=== PATIENT | female | born 1970 | race Caucasian/White ===

== ENCOUNTER 2020-10-20 19:02 | Emergency (ER) | payer BC ==
[2020-10-20 20:09] LABS: Hematocrit 41.4 % (36.0-45.0); Lymphocytes % 12.6 % (15.3-44.8); RBC Red Blood Cell Count 4.72 M/uL (3.86-4.86)
[2020-10-20] MEDS ORDERED: MORPHINE 4 MG/ML SYR ONE (20:13)
[2020-10-20] MEDS ORDERED: ONDANSETRON 4 MG/2 ML VIAL ONE ×2 (20:13→21:06)
[2020-10-20 20:21] LABS: ALT/SGPT 23 U/L (12-78); AST/SGOT 15 U/L (15-37); Albumin 3.1 g/dL (3.4-5.0); Alkaline Phosphatase 71 U/L (45-117); BUN Blood Urea Nitrogen 14 mg/dL (7-18); Bicarbonate 26 mmol/L (21-32); Bilirubin Direct < 0.1 mg/dL (0-0.2); Bilirubin Total 0.3 mg/dL (0.2-1.0); Glucose Level 94 mg/dL (74-106); Lipase 40 U/L (73-393); Potassium 3.9 mmol/L (3.5-5.1); Protein, Total 7.2 g/dL (6.4-8.2); Sodium Level 138 mmol/L (136-145)
[2020-10-20] MEDS ORDERED: FENTANYL CITR 100 MCG/2 ML ONE (21:06)
[2020-10-20 21:18] LABS: Urine Blood NEGATIVE (NEG); Urine Glucose NEGATIVE (NEG); Urine Protein NEGATIVE (NEG); Urine Specific Gravity 1.025 (1.005-1.030)
[2020-10-20] MEDS ORDERED: METOCLOPRAMIDE 10 MG/2mL INJ ONE (23:45)
[2020-10-20] MEDS ORDERED: LORazepam 2 MG/ML VIAL ONE (23:46)
[2020-10-20] MEDS ORDERED: DIPHENHYDRAMINE 50 MG/ML VIAL ONE (23:49)
--- NOTE | 2020-10-21 00:08 | EDPHYS ---
Physician Documentation [facility] Name: Monse Wright Age: 50 yrs Sex: Female : 1970 Arrival Date: 10/20/2020 Time: 19:11 Bed 16 Private MD: ED Physician Arthur Smith HPI: 10/20 20:26 This 50 yrs old Female presents to ER via EMS with complaints of Abdominal Pain. jmm 20:26 The patient presents with abdominal pain. Onset: The symptoms/episode began/occurred jmm gradually, 3 week(s) ago. The symptoms do not radiate. Associated signs and symptoms: Pertinent positives: vomiting, Pertinent negatives: diarrhea. The symptoms are described as achy, sharp. Modifying factors: The symptoms are alleviated by nothing, the symptoms are aggravated by nothing. This is a 50 year old female with a history of htn that presents to the ED with complaints of 3 weeks of ongoing abdominal pain with pain after eating along with vomiting. Denies diarrhea. Patient states she has been diagnosed with diverticulitis in the past. Denies previous abdominal surgery. . Historical: - Allergies: 19:15 No Known Allergies; bp - Home Meds: 19:15 carvedilol oral oral [Active]; Lisinopril Oral [Active]; Hydrochlorothiazide Oral bp [Active]; - PMHx: 19:15 Hypertension; bp - PSHx: 19:15 Appendectomy; bp - Immunization history:: Adult Immunizations up to date. - Social history:: Smoking status: unknown. ROS: 20:26 Constitutional: Negative for fever, chills, and weight loss, Cardiovascular: Negative jm for chest pain, palpitations, and edema, Respiratory: Negative for shortness of breath, cough, wheezing, and pleuritic chest pain. 20:26 Abdomen/GI: Positive for abdominal pain, nausea and vomiting. 20:26 All other systems are negative. Exam: 20:26 Constitutional: This is a well developed, well nourished patient who is awake, alert, jmm and in no acute distress. Head/Face: atraumatic. Eyes: EOMI, no conjunctival erythema appreciated ENT: Moist Mucus Membranes Neck: Trachea midline, Supple Chest/axilla: Normal chest wall appearance and motion. Cardiovascular: Regular rate and rhythm. No edema appreciated Respiratory: Normal respirations, no respiratory distress appreciated 20:26 Back: Normal ROM Skin: General appearance color normal MS/ Extremity: Moves all extremities, no obvious deformities appreciated, no edema noted to the lower extremities Neuro: Awake and alert, normal gait Psych: Behavior is normal, Mood is normal, Patient is cooperative and pleasant 20:26 Abdomen/GI: Inspection: abdomen appears normal, Bowel sounds: normal, Palpation: soft, moderate abdominal tenderness, in all quadrants. Vital Signs: 19:12 BP 150 / 70; Pulse 75; Resp 17; Temp 98; Pulse Ox 98% ; bp MDM: 19:39 Patient medically screened. [facility] 10/21 00:06 Data reviewed: vital signs, nurses notes. Counseling: I had a detailed discussion with [facility] the patient and/or guardian regarding: the historical points, exam findings, and any diagnostic results supporting the discharge/admit diagnosis, lab results, radiology results, the need for outpatient follow up, to return to the emergency department if symptoms worsen or persist or if there are any questions or concerns that arise at home. ED course: Patient is alert and non toxic in appearance in the ED. Patient states she takes kratom daily. Symptoms have been ongoing for approx [address] imaging would include gastroparesis, PUD. Advised to follow up with GI and otherwise given strict return precautions. patient understood and agrees with the plan of care. . 10/20 19:40 Order name: Basic Metabolic Panel; Complete Time: 20:23 [facility] 10/20 19:40 Order name: CBC with Diff; Complete Time: 20:23 [facility] 10/20 19:40 Order name: Hepatic Function; Complete Time: 20:23 [facility] 10/20 19:40 Order name: Lipase; Complete Time: 20:23 [facility] 10/20 21:08 Order name: Urine --Ancillary (enter results); Complete Time: 21:20 10/20 21:08 Order name: Urine Dipstick--Ancillary (enter results); Complete Time: 21:20 10/20 21:38 Order name: CT Abd/Pelvis - IV Contrast Only [facility] 10/20 19:40 Order name: IV Saline Lock; Complete Time: 20:00 [facility] 10/20 19:40 Order name: Labs collected and sent; Complete Time: 20:00 [facility] 10/20 19:40 Order name: Urine Dipstick-Ancillary (obtain specimen); Complete Time: 20:18 [facility] 10/20 19:40 Order name: Urine Test (obtain specimen); Complete Time: 20:18 [facility] Administered Medications: 10/20 20:01 Drug: morphine 4 mg Route: IVP; Site: right antecubital; ll2 21:00 Follow up: Response: No adverse reaction; RASS: Alert and Calm (0) ll2 20:02 Drug: Zofran (Ondansetron) 4 mg Route: IVP; Site: right antecubital; ll2 21:20 Follow up: Response: No adverse reaction ll2 20:59 Drug: fentaNYL (PF) 75 mcg Route: IVP; Site: left antecubital; ll2 21:50 Follow up: Response: No adverse reaction ll2 22:46 Drug: Zofran (Ondansetron) 4 mg Route: IVP; Site: left antecubital; ll2 23:45 Follow up: Response: No adverse reaction ll2 23:43 Drug: diphenhydrAMINE 25 mg Route: IVP; Site: right antecubital; ll2 10/21 00:10 Follow up: Response: No adverse reaction 2 10/20 23:43 Drug: Ativan 1 mg Route: IVP; Site: right antecubital; ll2 10/21 00:15 Follow up: Response: No adverse reaction 2 10/20 23:43 Drug: Reglan 10 mg Route: IVP; Site: right antecubital; ll2 10/21 00:00 Follow up: Response: No adverse reaction 2 Disposition: 10/21/20 00:07 Discharged to Home. Impression: Generalized abdominal pain, Vomiting. - Condition is Stable. - Discharge Instructions: Nausea and Vomiting, Adult, Gastroparesis. - Prescriptions for Reglan 10 mg Oral Tablet - take 1 tablet by ORAL route every 6 hours . take 30 minutes before meals and at bedtime; 30 tablet. - Medication Reconciliation Form, Thank You Letter, Antibiotic Education, Prescription Opioid Use, Work release form form. - Follow up: Mayra Mendez MD; When: 2 - 3 days; Reason: Recheck today's complaints, Continuance of care, Re-evaluation by your physician. Addendum: 10/23/2020 07:14 Co-signature as Attending Physician, Arthur Smith MD. r n Signatures: Dispatcher [employer] EDMS Joselo Joyce PA PA jmm Nieto, Roman, MD MD rn Peltier, Brian RN RN Kimberly Garcia RN RN ll2 Corrections: (The following items were deleted from the chart) 10/21 00:18 00:07 10/21/2020 00:07 Discharged to Home. Impression: Generalized abdominal pain; ll2 Vomiting. Condition is Stable. Forms are Medication Reconciliation Form, Thank You Letter, Antibiotic Education, Prescription Opioid Use. Follow up: Mayra Mendez; When: 2 - 3 days; Reason: Recheck today's complaints, Continuance of care, Re-evaluation by your physician. ramón
--- NOTE | 2020-10-21 00:08 | ER ---
Nurse's Notes [facility] Name: Monse Wright Age: 50 yrs Sex: Female : 1970 Arrival Date: 10/20/2020 Time: 19:11 Bed 16 Private MD: Diagnosis: Generalized abdominal pain;Vomiting Presentation: 10/20 19:12 Chief complaint: EMS states: BLQ PAIN x2 DAYS, WORSE WITH FOOD. Coronavirus screen: At bp this time, the client does not indicate any symptoms associated with coronavirus-19. Ebola Screen: No symptoms or risks identified at this time. Initial Sepsis Screen: Does the patient meet any 2 criteria? No. Patient's initial sepsis screen is negative. Does the patient have a suspected source of infection? No. Patient's initial sepsis screen is negative. Risk Assessment: Do you want to hurt yourself or someone else? Patient reports no desire to harm self or others. Onset of symptoms is unknown. 19:12 Method Of Arrival: EMS: [facility] bp 19:12 Acuity: NOLAN 3 bp Triage Assessment: 19:15 General: Appears distressed, uncomfortable, obese, Behavior is cooperative, appropriate bp for age, anxious. Pain: Complains of pain in right lower quadrant and left lower quadrant. EENT: No deficits noted. Neuro: No deficits noted. Cardiovascular: No deficits noted. Respiratory: No deficits noted. GI: Abdomen is non-distended, Reports lower abdominal pain, nausea. : No deficits noted. Derm: No deficits noted. Musculoskeletal: No deficits noted. Historical: - Allergies: 19:15 No Known Allergies; bp - Home Meds: 19:15 carvedilol oral oral [Active]; Lisinopril Oral [Active]; Hydrochlorothiazide Oral bp [Active]; - PMHx: 19:15 Hypertension; bp - PSHx: 19:15 Appendectomy; bp - Immunization history:: Adult Immunizations up to date. - Social history:: Smoking status: unknown. Screenin:17 Abuse screen: Denies threats or abuse. Denies injuries from another. Nutritional bp screening: No deficits noted. Tuberculosis screening: No symptoms or risk factors identified. Fall Risk None identified. Assessment: 19:17 General: SEE TRIAGE NOTE. bp 20:20 Reassessment: Patient and/or family updated on plan of care and expected duration. Pain ll2 level reassessed. Patient is alert, oriented x 3, equal unlabored respirations, skin warm/dry/pink. family to bedside. 21:30 Reassessment: Patient and/or family updated on plan of care and expected duration. Pain ll2 level reassessed. Patient is alert, oriented x 3, equal unlabored respirations, skin warm/dry/pink. Vital Signs: 19:12 BP 150 / 70; Pulse 75; Resp 17; Temp 98; Pulse Ox 98% ; bp ED Course: 19:11 Patient arrived in ED. bp 19:14 Triage completed. bp 19:15 Arm band placed on. bp 19:17 Patient has correct armband on for positive identification. Bed in low position. Call bp light in reach. Side rails up X2. 19:18 Joselo Joyce PA is PHCP. [facility] 19:18 Arthur Smith MD is Attending Physician. [facility] 19:59 Kimberly Siddiqui, NIKITA is Primary Nurse. ll2 22:42 CT Abd/Pelvis - IV Contrast Only In Process Unspecified. EDMS 10/21 00:07 Mayra Mendez MD is Referral Physician. [facility] 00:10 No provider procedures requiring assistance completed. IV discontinued, intact, ll2 bleeding controlled, No redness/swelling at site. Pressure dressing applied. Administered Medications: 10/20 20:01 Drug: morphine 4 mg Route: IVP; Site: right antecubital; ll2 21:00 Follow up: Response: No adverse reaction; RASS: Alert and Calm (0) ll2 20:02 Drug: Zofran (Ondansetron) 4 mg Route: IVP; Site: right antecubital; ll2 21:20 Follow up: Response: No adverse reaction ll2 20:59 Drug: fentaNYL (PF) 75 mcg Route: IVP; Site: left antecubital; ll2 21:50 Follow up: Response: No adverse reaction ll2 22:46 Drug: Zofran (Ondansetron) 4 mg Route: IVP; Site: left antecubital; ll2 23:45 Follow up: Response: No adverse reaction ll2 23:43 Drug: diphenhydrAMINE 25 mg Route: IVP; Site: right antecubital; ll2 10/21 00:10 Follow up: Response: No adverse reaction ll2 10/20 23:43 Drug: Ativan 1 mg Route: IVP; Site: right antecubital; ll2 10/21 00:15 Follow up: Response: No adverse reaction ll2 10/20 23:43 Drug: Reglan 10 mg Route: IVP; Site: right antecubital; ll2 10/21 00:00 Follow up: Response: No adverse reaction ll2 Outcome: 00:07 Discharge ordered by MD. melgar 00:10 Discharged to home ambulatory. ll2 00:10 Condition: stable 00:10 Discharge instructions given to patient, Instructed on discharge instructions, follow up and referral plans. medication usage, Demonstrated understanding of instructions, follow-up care, medications, Prescriptions given X 1. 00:18 Patient left the ED. ll2 Signatures: Dispatcher [employer] EDMS Joselo Joyce PA PA jmm Peltier, Brian, RN RN Kimberly Garcia RN RN ll2 Corrections: (The following items were deleted from the chart) 07:41 00:10 Discharge instructions given to patient, Instructed on discharge instructions, ll2 follow up and referral plans. medication usage, Demonstrated understanding of instructions, follow-up care, medications, Prescriptions given X 2, ll2
[2020-10-21 00:25] VITALS: BP 150/70; TEMP 98; O2SAT 98
--- NOTE | 2020-10-21 11:24 | RAD REPORT ---
EXAM DESCRIPTION: CT - Abdomen Pelvis W Contrast - 10/21/2020 8:58 am CLINICAL HISTORY: The patient is 50 years old and is Female; abdominal pain TECHNIQUE: Axial computed tomography images of the abdomen and pelvis with intravenous contrast. S agittal and coronal reformatted images were created and reviewed. This CT exam was performed using one or more of the following dose reduction techniques: automated exposure control, adjustment of t he mA and/or kV according to patient size, and/or use of iterative reconstruction technique. COMPARISON: No relevant prior studies available. FINDINGS: Lung bases: Unremarkable. No mass. No consolidation. ABDOMEN: Liver: Unremarkable. No mass. Gallbladder and bile ducts: Unremarkable. No calcified stones. No ductal dilation. Pancreas: Unremarkable. No mass. No ductal dilation. Spleen: Unremarkable. No splenomegaly. Adrenals: Unremarkable. No mass. Kidneys and ureters: Left renal calculus measuring up to 7 mm. No hydronephrosis. Stomach and bowel: Scattered colonic diverticula. No evidence of diverticulitis. No obstruction. PELVIS: Appendix: No findings to suggest acute appendicitis. Bladder: Unremarkable. No mass. Reproductive: Multiple uterine lesions, likely fibroids. ABDOMEN and PELVIS: Intraperitoneal space: Unremarkable. No free air. No significant fluid collection. Bones/joints: No acute fracture. No dislocation. Soft tissues: Unremarkable. Vasculature: Scattered atherosclerotic vascular calcifications. No abdominal aortic aneurysm. Lymph nodes: Unremarkable. No enlarged lymph nodes. IMPRESSION: 1. No acute intra-abdominal abnormality. 2. Left nonobstructive nephrolithiasis. 3. Scattered colonic diverticula. No evidence of diverticulitis. 4. Multiple uterine lesions, likely fibroids. Electronically signed by: Luis Kruse MD 10/20/2020 10:55 PM MEDICAL ASSISTING INSTRUCTOR Due to temporary technical issues with the PACS/Fluency reporting system, reports are being signed by the in house radiologists without review as a courtesy to insure prompt reporting. The interpreting radiologist is fully responsible for the content of the report.
[2020-10-23] MEDS ORDERED: NA CHLORIDE 0.9% 2,000 ML ONE (02:12)
[2020-10-23] MEDS ORDERED: ONDANSETRON 4 MG/2 ML VIAL ONE (02:12)
[2020-10-23] MEDS ORDERED: NA CHLORIDE 0.9% 1,000 ML ONE (03:01)
[2020-10-23] MEDS ORDERED: KCL 20 MEQ/100 mL IVPB 20 MEQ/100 ML BAG IV ONE (03:10)
[2020-10-23] MEDS ORDERED: Levofloxacin 750mg IV 750 MG/150 ML BAG IV ONE (03:52)
[2020-10-23] MEDS ORDERED: METRONIDAZOLE 500mg IVPB 500 MG/100 ML BAG IV ONE (03:52)
[2020-10-23] MEDS ORDERED: MORPHINE 2 MG/ML SYR ONE ×2 (05:11→12:29)
[2020-10-23] MEDS ORDERED: DIPHENOX/ATROP SULF 1 TAB PO ONE (05:30)
[2020-10-23] MEDS ORDERED: MEPERIDINE HCL 50 MG/ML ONE (06:34)
[2020-10-23] MEDS ORDERED: NS KCL 20MEQ 1,000 ML IV ONE (11:03)
[2020-10-23] MEDS ORDERED: NA CHLORIDE 0.9% 500 ML ONE (12:29)
== END 2020-10-21 00:18 | disposition home or self-care (01) ==
LOC: ER 19:02 → MERGE 19:02 → ER 10-21 00:18
DX: R10.84 Generalized abdominal pain (principal); R11.10 Vomiting, unspecified; I10 Essential (primary) hypertension
CPT/HCPCS: 85025; 80048; 36415; 81025; 80076; 81003; 83690; 74177; 99284; Q9967; J2765; J1200; J3010; J2405 ×2

== ENCOUNTER 2020-10-23 01:41 | Inpatient (IN) | payer BC ==
--- OUTSIDE RECORDS SUMMARY | 2020-10-23 05:56 | XMS REPORT | Continuity of Care Document ---
:1970 Author Organization [facility] t Address [address] [place] [place] [address] Care Team Providers Name Role Phone Viet Heath MD Attending Clinician Doctor Unassigned, Name Attending Clinician Unavailable Pcp-Lab Attending Clinician Unavailable Milagro STEVENS Attending Clinician Eric STEVENS, Nonyelum Attending Clinician Clinic, Pcp Assessment Attending Clinician Unavailable Henrietta STEVENS Attending Clinician Jacob STEVENS Attending Clinician Problems This patient has no known problems. Allergies, Adverse Reactions, Alerts This patient has no known allergies or adverse reactions. Medications This patient has no known medications. Procedures This patient has no known procedures. Encounters Start End Encounter Admission Attending Care Care Encounter Source Date/Time Date/Time Type Type Clinicians Facility Department ID 2020-10-18 2020-10-18 Patient Viet Heath [id number] 00:00:00 00:00:00 Secure Msg [place] PRIMARY [id number] CARE [id number] UYEN [id number] 2020-10-15 2020-10-15 Orders Doctor MENDEZ [id number] 00:00:00 00:00:00 Only Unassigned, QUIN 350.1.13.10 [place] [facility] [id number] [id number] 2020-08-23 2020-08-23 Patient Viet Heath [facility] [id number] 00:00:00 00:00:00 Secure Msg [place] PRIMARY [id number] CARE [id number] PAVILLION [id number] 2020-08-11 2020-08-11 Viet Huerta [facility] 1.2.840.114 [id number] 00:00:00 00:00:00 Secure Msg [place] PRIMARY [id number] CARE [id number] PAVILLION [id number] 2020-08-09 2020-08-09 Alliance Manager Pcp-Lab [facility] 1.2.840.114 [id number] 14:20:10 14:35:10 Visit PRIMARY [id number] CARE 4.2.7.2.686 PAVILLION [id number] 2020-07-22 2020-07-22 [facility] Viet Heath [facility] 1.2.840.114 [id number] 00:00:00 00:00:00 [place] PRIMARY 350.1.13.10 CARE 4.2.7.2.686 PAVILLION [id number] 2020-07-16 2020-07-16 [facility] Viet Heath [facility] 1.2.840.114 [id number] 00:00:00 00:00:00 [place] PRIMARY 350.1.13.10 CARE [id number] PAVILLION [id number] 2020-04-16 2020-04-16 [facility] Viet Heath [facility] 1.2.840.114 [id number] 00:00:00 00:00:00 [place] PRIMARY 350.1.13.10 CARE 4.2.7.2.686 PAVILLION [id number] 2020-04-12 2020-04-12 [facility] Viet Heath [facility] 1.2.840.114 [id number] 00:00:00 00:00:00 [place] PRIMARY 350.1.13.10 CARE 4.2.7.2.686 PAVILLION [id number] 2020-02-13 2020-02-13 [facility] AUSTEN Humphrey 1.2.840.114 [id number] 14:19:09 23:59:00 Encounter Tariq Zaman 350.1.13.10 BUILDING 42.7.2.686 [id number] 2020-02-13 2020-02-13 Urgent Eric, [facility] 1.2.840.114 [id number] 12:01:20 12:16:20 Care Aguilar PRIMARY 350.1.13.10 Nonyelum CARE 4.2.7.2.686 PAVILLION [id number] 2020-02-13 2020-02-13 Laboratory Clinic, [facility] 1.2.840.114 [id number] 11:15:00 11:30:00 Only Pcp PRIMARY 350.1.13.10 Assessment CARE 4.2.7.2.686 PAVILLION [id number] 2020-02-13 2020-02-13 Telephone ANDREA Shrestha 12.840.114 [id number] 00:00:00 00:00:00 Jemma QUIN 350.1.13.10 [facility] 4.2.7.2.686 [id number] 2020-02-08 2020-02-08 Telephone Viet Heath [facility] 12.840.114 [id number] 00:00:00 00:00:00 [place] PRIMARY 350.1.13.10 CARE 4.2.7.2.686 PAVILLION [id number] 2020-02-08 2020-02-08 Patient Ivana [facility] 1.2.840.114 [id number] 00:00:00 00:00:00 Secure Msg [place] PRIMARY 350.1.13.10 CARE 4.2.7.2.686 PAVILLION [id number] 2019-12-20 2019-12-20 Patient Viet Heath [facility] 12.840.114 [id number] 00:00:00 00:00:00 Secure Msg [place] PRIMARY 350.1.13.10 CARE 4.2.7.2.686 PAVILLION [id number] 2019-12-19 2019-12-19 Patient MELANY James [id number] 00:00:00 00:00:00 Secure Msg Roland [facility] 350.1.13.10 CLINICS 4.2.7.2.686 [id number] 2019-12-18 2019-12-18 Alliance Manager Pcp-Lab [facility] 1.2.840.114 [id number] 10:19:37 10:19:56 Visit PRIMARY 350.1.13.10 CARE 4.2.7.2.686 PAVILLION [id number] 2019-12-18 2019-12-18 Patient Viet Heath [facility] 1.2.840.114 [id number] 00:00:00 00:00:00 Secure Msg [place] PRIMARY 350.1.13.10 CARE 4.2.7.2.686 PAVILLION [id number] 2019-12-07 2019-12-07 [id number] 00:00:00 00:00:00 Secure Msg Roland [facility] 350.1.13.10 CLINICS 4.2.7.2.686 [id number] 2019-11-30 2019-11-30 Office [id number] 07:53:30 12:17:44 Visit Roland [facility] 350.1.13.10 CLINICS 4.2.7.2.686 [id number] Results This patient has no known results.
--- OUTSIDE RECORDS SUMMARY | 2020-10-23 05:57 | XMS REPORT | Summary of Care ---
:1970 Author Organization [facility] Address [address] [place] [address] Care Team Providers Name Role Phone Juan Jose Heath MD Primary Care Provider Encounter Details Date Type Department Care Team Description 08/11/2020 Patient Secure [facility] Viet Heath, Acute c ystitis Msg Internal Medicine- MD without hematuria [place] [address] (Primary Dx) Primary Care [address] [place] [address] [address] [phone] [place] [address] Allergies Active Allergy Reactions Severity Noted Date Comments Bee Sting / Venom Hives, Itching, Swelling 07/29/2018 Atorvastatin Calcium Swelling 12/05/2018 documented as of this encounter (statuses as of 08/11/2020) Medications Medication Sig Dispensed Refills Start Date End Date Status proMETHazine 25 mg Take 0.5 8 tablet 0 12/05/2018 Active tabletIndications: tablets by Urinary tract infection mouth every 6 with hematuria, site (six) hours as unspecified needed for Nausea and Vomiting (N/V). carvediloL 25 mg tablet Take 25 mg by 0 09/28/2019 Active mouth 2 (two) times daily. omeprazole 20 mg Take 1 capsule 90 capsule 3 11/13/2019 Active capsuleIndications: by mouth Gastroesophageal reflux daily. disease, esophagitis presence not specified cetirizine (ZYRTEC) 10 mg Take 1 tablet 90 tablet 3 02/08/2020 Active tabletIndications: by mouth Allergic rhinitis, daily. unspecified seasonality, unspecified trigger hydroCHLOROthiazide 25 mg Take 1 tablet 90 tablet 3 04/15/2020 Active tabletIndications: by mouth Essential hypertension daily. hydrALAZINE 25 mg Take 1 tablet 180 tablet 3 04/17/2020 Active tabletIndications: by mouth 2 Essential hypertension (two) times daily. lisinopriL 40 mg Take 1 tablet 90 tablet 3 07/17/2020 Active tabletIndications: by mouth Essential hypertension daily. amLODIPine 10 mg Take 1 tablet 90 tablet 3 07/17/2020 Active tabletIndications: by mouth Essential hypertension daily. ciprofloxacin HCl 250 mg Take 1 tablet 6 tablet 0 08/11/2020 Active tabletIndications: Acute by mouth every 0 cystitis without 12 (twelve) hematuria hours for 3 days. documented as of this encounter (statuses as of 08/11/2020) Active Problems Problem Noted Date Well woman exam with routine gynecological exam 2019 Needs smoking cessation education 11/30/2019 Hypertensive emergency without congestive heart failur e 07/31/2018 Hypertensive urgency 07/27/2018 Obesity (BMI 30-39.9) 07/27/2018 Unstable angina 07/27/2018 documented as of this encounter (statuses as of 08/11/2020) Immunizations Name Administration Dates Next Due Influenza Virus Vaccine 08/14/2019 Pneumococcal Polysaccharide, PPSV23 (PNEUMOVAX) 11/13/2019 documented as of this encounter Social History Tobacco Use Types Packs/Day Years Used Date Current Every Day Smoker Cigarettes 1 30 Sta rted: 07/27/1988 Smokeless Tobacco: Never Used Alcohol Use Drinks/Week oz/Week Comments Never Alcohol Habits Answer Date Recorded How often do you have a drink containing alcohol? Never 11/13/2019 How many drinks containing alcohol do you have on a typical Not asked day when you are drinking? How often do you have six or more drinks on one occasion? No t asked Sex Assigned at Date Recorded Not on file documented as of this encounter Last Filed Vital Signs Not on filedocumented in this encounter Plan of Treatment Health Maintenance Due Date Last Done Comments DTaP,Tdap,and Td Vaccines (1 - Tdap) 1989 COLON CANCER SCREENING ANNUAL FIT/FOBT 2020 COLON CANCER SCREENING FIT DNA EVERY 3 YEARS 2020 COLON CANCER SCREENING SIGMOIDOSCOPY EVERY 5 YEARS 2020 COLONOSCOPY 2020 Colorectal Cancer Screening 2020 Zoster Recombinant Vaccine (SHINGRIX) (1 of 2) 2020 INFLUENZA VACCINE (#1) 2020 08/14/2019 Breast Cancer Screening (MAMMOGRAM) 11/16/2020 11/16/2019 Depression Screening 11/30/2020 11/30/2019 PAP SMEAR 11/30/2022 11/30/2019 PNEUMOCOCCAL 0-64 YEARS COMBINED SERIES Completed 11/13/19 documented as of this encounter Goals Goal Patient Goal Associated Recent Patient-Stated? Author Type Problems Progress Record your Blood Pressure Doris Glez blood pressure Rhiannon, RN once a day documented as of this encounter Results Not on filedocumented in this encounter Visit Diagnoses Diagnosis Acute cystitis without hematuria - Prima ry Acute cystitis documented in this encounter Insurance Payer Benefit Plan / Subscriber ID Effective Dates Phone Addre ss Type Group [facility] - [facility] [id number] 2019-Present PPO/POS [employer] EMPL[employer]EE PLAN documented as of this encounter
--- OUTSIDE RECORDS SUMMARY | 2020-10-23 05:57 | XMS REPORT | Summary of Care ---
:1970 Author Organization [facility] Address [address] [place] [address] Care Team Providers Name Role Phone Juan Jose Heath MD Primary Care Provider Encounter Details Date Type Department Care Team Description 10/15/2020 Orders Only [facility] Doctor Unassigned, No [address] [facility] [place] [address] [address] [place] [address] Allergies Active Allergy Reactions Severity Noted Date Comments Bee Sting / Venom Hives, Itching, Swelling 07/29/2018 Atorvastatin Calcium Swelling 12/05/2018 documented as of this encounter (statuses as of 10/15/2020) Medications Medication Sig Dispensed Refills Start Date [...] mouth 2 Essential hypertension (two) times daily. amLODIPine 10 mg Take 1 tablet 90 tablet 3 08/23/2020 Active tabletIndications: by mouth Essential hypertension daily. lisinopriL 40 mg Take 1 tablet 90 tablet 3 08/23/2020 Active tabletIndications: by mouth Essential hypertension daily. documented as of this encounter (statuses as of 10/15/2020) Active Problems Problem Noted Date Well woman exam with routine gynecological exam 2019 Needs smoking cessation education 11/30/2019 Hypertensive emergency without congestive heart failur e 07/31/2018 Hypertensive urgency 07/27/2018 Obesity (BMI 30-39.9) 07/27/2018 Unstable angina 07/27/2018 documented as of this encounter (statuses as of 10/15/2020) Immunizations Name Administration Dates Next Due Influenza [...] Type Problems Progress Record your Blood Pressure No Amaris, blood pressure Rhiannon, RN once a day documented as of this encounter Procedures Procedure Name Priority Date/Time Associated Diagnosis Comme nts ASSIGNMENT OF BENEFITS Routine 10/15/2020 8:05 AM LATCHER documented in this encounter Results Not on filedocumented in this encounter Insurance Payer Benefit Plan / Subscriber ID Effective Dates Phone Addre ss Type Group [facility] - [facility] [id number] 2019-Present PPO/POS [facility] EMPLOYEE EMPLOYEE PLAN documented as of this encounter
--- OUTSIDE RECORDS SUMMARY | 2020-10-23 05:57 | XMS REPORT | Summary of Care ---
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 Visit [facility] Romi Cobian MD [address] [address] UTI symptoms CLINICS LAB Pcp-Lab Primary Care [facility] [address] [email or web address] [address] Allergies Active Allergy Reactions Severity Noted Date Comments Bee Sting / Venom Hives, Itching, Swelling 07/29/2018 Atorvastatin Calcium Swelling 12/05/2018 documented as of this encounter (statuses as of 08/09/2020) Medications Medication Sig Dispensed Refills Start Date [...] as of this encounter (statuses as of 08/09/2020) Active Problems Problem Noted Date Well woman exam with routine gynecological exam 2019 Needs smoking cessation education 11/30/2019 Hypertensive emergency without congestive heart failur e 07/31/2018 Hypertensive urgency 07/27/2018 Obesity (BMI 30-39.9) 07/27/2018 Unstable angina 07/27/2018 documented as of this encounter (statuses as of 08/09/2020) Immunizations Name Administration Dates Next Due Influenza [...] Signs Not on filedocumented in this encounter Nursing Notes Althea Chapa - 08/09/2020 4:05 PM CDT Patient has been identified by and name and was provided with cup, antiseptic towelette, and clean catch instructions. 2 urine specimen(s) sent. Unpreserved 1 Urine Culture 1 Aptima tube Other urine documented in this encounter Plan of Treatment Health [...] your Blood Pressure Doris Glez blood pressure NIKITA Jurado once a day documented as of this encounter Results Not on filedocumented in this encounter Visit Diagnoses Diagnosis UTI symptoms documented in this encounter Insurance Payer Benefit Plan / Subscriber ID Effective Dates Phone Addre ss Type Group [facility] - [facility] [id number] 2019-Present PPO/POS [facility] EMPLOYEE EMPLOYEE PLAN documented as of this encounter
--- OUTSIDE RECORDS SUMMARY | 2020-10-23 05:57 | XMS REPORT | Summary of Care ---
:1970 Author Organization [facility] Address [address] [place] [address] Care Team Providers Name Role Phone Juan Jose Heath MD Primary Care Provider Encounter Details Date Type Department Care Team Description 08/23/2020 Patient Secure [facility] Viet Heath Essenti al Msg Internal Medicine - MD hypertension [place] [address] [facility] [address] [place] [address] [address], [address] [place] [address] Allergies Active Allergy Reactions Severity Noted Date Comments Bee Sting / Venom Hives, Itching, Swelling 07/29/2018 Atorvastatin Calcium Swelling 12/05/2018 documented as of this encounter (statuses as of 08/23/2020) Medications Medication Sig Dispensed Refills Start End Status Date Date proMETHazine 25 mg Take 0.5 8 tablet 0 A ctive tabletIndications: tablets by 9 Urinary tract infection mouth every with hematuria, site 6 (six) unspecified hours as needed for Nausea and Vomiting (N/V). carvediloL 25 mg tablet Take 25 mg 0 Active by mouth 2 9 (two) times daily. omeprazole 20 mg Take 1 90 capsule 3 Ac tive capsuleIndications: capsule by 0 Gastroesophageal reflux mouth daily. disease, esophagitis presence not specified cetirizine (ZYRTEC) 10 Take 1 90 tablet 3 Active mg tabletIndications: tablet by 0 Allergic rhinitis, mouth daily. unspecified seasonality, unspecified trigger hydroCHLOROthiazide 25 Take 1 90 tablet 3 Active mg tabletIndications: tablet by 0 Essential hypertension mouth daily. hydrALAZINE 25 mg Take 1 180 tablet 3 A ctive tabletIndications: tablet by 0 Essential hypertension mouth 2 (two) times daily. amLODIPine 10 mg Take 1 90 tablet 3 Act pelon tabletIndications: tablet by 0 Essential hypertension mouth daily. lisinopriL 40 mg Take 1 90 tablet 3 Act pelon tabletIndications: tablet by 0 Essential hypertension mouth daily. lisinopriL 40 mg Take 1 90 tablet 3 Dis continued tabletIndications: tablet by 0 020 ( Reorder) Essential hypertension mouth daily. amLODIPine 10 mg Take 1 90 tablet 3 Dis continued tabletIndications: tablet by 0 020 ( Reorder) Essential hypertension mouth daily. documented as of this encounter (statuses as of 08/23/2020) Active Problems Problem Noted Date Well woman exam with routine gynecological exam 2019 Needs smoking cessation education 11/30/2019 Hypertensive emergency without congestive heart failur e 07/31/2018 Hypertensive urgency 07/27/2018 Obesity (BMI 30-39.9) 07/27/2018 Unstable angina 07/27/2018 documented as of this encounter (statuses as of 08/23/2020) Immunizations Name Administration Dates Next Due Influenza [...] Problems Progress Record your Blood Pressure Doris Glez, blood pressure NIKITA Jurado once a day documented as of this encounter Results Not on filedocumented in this encounter Visit Diagnoses Diagnosis Essential hypertension Unspecified essential hypertension documented in this encounter Insurance Payer Benefit Plan / Subscriber ID Effective Dates Phone Addre ss Type Group [facility] [id number] 2019-Present PPO/POS [facility] EMPLOYEE EMPLOYEE PLAN documented as of this encounter
--- OUTSIDE RECORDS SUMMARY | 2020-10-23 05:57 | XMS REPORT | Summary of Care ---
:1970 Author Organization [facility] Address [address] [place] [address] Care Team Providers Name Role Phone Juan Jose Heath MD Primary Care Provider Reason for Visit Reason Comments Appointment Encounter Details Date Type Department Care Team Description 07/16/2020 Refill [facility] Internal Viet Heath MD Appointment Medicine- [place] [address] [facility] [address] [place] [address] [place], [place] [phone] Allergies Active Allergy Reactions Severity Noted Date Comments Bee Sting / Venom Hives, Itching, Swelling 07/29/2018 Atorvastatin Calcium Swelling 12/05/2018 documented as of this encounter (statuses as of 07/30/2020) Medications Medication Sig Dispensed Refills Start End [...] hydroCHLOROthiazide 25 Take 1 90 tablet 3 07/06/202 Active mg tabletIndications: tablet by 0 Essential hypertension mouth daily. hydrALAZINE 25 mg Take 1 180 tablet 3 A ctive tabletIndications: tablet by 0 Essential hypertension mouth 2 (two) times daily. lisinopriL 40 mg Take 1 90 tablet 3 Act pelon tabletIndications: tablet by 0 Essential hypertension mouth daily. amLODIPine 10 mg Take 1 90 tablet 3 Act pelon tabletIndications: tablet by 0 Essential hypertension mouth daily. amLODIPine 10 mg tablet Take 10 mg 0 07/16 Discontinued by mouth 0 020 (Reorder) daily. lisinopril 40 mg tablet Take 40 mg 0 07/16 Discontinued by mouth 0 020 (Reorder) daily. documented as of this encounter (statuses as of 07/30/2020) Active Problems Problem Noted Date Well woman exam with routine gynecological exam 2019 Needs smoking cessation education 11/30/2019 Hypertensive emergency without congestive heart failur e 07/31/2018 Hypertensive urgency 07/27/2018 Obesity (BMI 30-39.9) 07/27/2018 Unstable angina 07/27/2018 documented as of this encounter (statuses as of 07/30/2020) Immunizations Name Administration Dates Next Due Influenza [...] Signs Not on filedocumented in this encounter Miscellaneous Notes Telephone Encounter - Rico Valencia PCT - 07/22/2020 10:41 AM CDTTry calling pTEJT g elephone Encounter - Angela Forte RN - 07/17/2020 8:30 PM CDTPlease holli, NOV: none ROJAS: 11/13/19 Requesting refill on amlodipine and lisinopril. Routing to PSS to schedule follow up. documented in this encounter Plan of Treatment [...] PNEUMOCOCCAL 0-64 YEARS COMBINED SERIES Completed 11/13/19 20 documented as of this encounter Goals Goal Patient Goal Associated Recent Patient-Stated? Author Type Problems Progress Record your Blood Pressure Doris Glez blood pressure Rhiannon, RN once a day documented as of this encounter Results Not on filedocumented in this encounter Visit Diagnoses Diagnosis Essential hypertension - Primary Unspecified essential hypertension documented in this encounter Insurance Payer Benefit Plan / Subscriber ID Effective Dates Phone Addre ss Type Group [facility] [id number] 2019-Present PPO/POS [facility] EMPLOYEE EMPLOYEE PLAN documented as of this encounter
--- OUTSIDE RECORDS SUMMARY | 2020-10-23 05:57 | XMS REPORT | Summary of Care ---
:1970 Author Organization [facility] Address [address] [place] [address] Care Team Providers Name Role Phone Juan Jose Heath MD Primary Care Provider Encounter Details Date Type Department Care Team Description 10/18/2020 Patient Secure [facility] Viet Heath Essenti al Msg Internal Medicine- MD hypertension [place] [address] (Primary Dx) Primary Care [facility] [address] [place] [address] [address] [phone] [facility] [address] [place] [address] Allergies Active Allergy Reactions Severity Noted Date Comments Bee Sting / Venom Hives, Itching, Swelling 07/29/2018 Atorvastatin Calcium Swelling 12/05/2018 documented as of this encounter (statuses as of 10/18/2020) Medications Medication Sig Dispensed Refills Start End Status Date Date proMETHazine 25 mg Take 0.5 8 tablet 0 12/05/19 A ctive tabletIndications: tablets by 19 Urinary tract mouth every 6 infection with (six) hours as hematuria, site needed for unspecified Nausea and Vomiting (N/V). omeprazole 20 mg Take 1 capsule 90 capsule 3 11/13/19 Active capsuleIndications: by mouth 20 Gastroesophageal daily. reflux disease, esophagitis presence not specified cetirizine (ZYRTEC) 10 Take 1 tablet 90 tablet 3 02/08/20 Active mg tabletIndications: by mouth 20 Allergic rhinitis, daily. unspecified seasonality, unspecified trigger hydroCHLOROthiazide 25 Take 1 tablet 90 tablet 3 04/15/20 Active mg tabletIndications: by mouth 20 Essential hypertension daily. hydrALAZINE 25 mg Take 1 tablet 180 tablet 3 04/17/20 Active tabletIndications: by mouth 2 20 Essential hypertension (two) times daily. amLODIPine 10 mg Take 1 tablet 90 tablet 3 08/23/20 Active tabletIndications: by mouth 20 Essential hypertension daily. lisinopriL 40 mg Take 1 tablet 90 tablet 3 08/23/20 Active tabletIndications: by mouth 20 Essential hypertension daily. carvediloL 25 mg Take 1 tablet 60 tablet 0 10/18/19 Active tabletIndications: by mouth 2 21 Essential hypertension (two) times daily. NEED APPOINTMENT FOR FUTURE REFILLS carvediloL 25 mg Take 25 mg by 0 09/28/20 Discontinued tablet mouth 2 (two) 19 021 (Reord er) times daily. documented as of this encounter (statuses as of 10/18/2020) Active Problems Problem Noted Date Well woman exam with routine gynecological exam 2019 Needs smoking cessation education 11/30/2019 Hypertensive emergency without congestive heart failur e 07/31/2018 Hypertensive urgency 07/27/2018 Obesity (BMI 30-39.9) 07/27/2018 Unstable angina 07/27/2018 documented as of this encounter (statuses as of 10/18/2020) Immunizations Name Administration Dates Next Due Influenza [...] Assigned at Date Recorded Not on file COVID-19 Exposure Response Date Recorded In the last month, have you been in contact with Yes 10/15/2020 8:06 AM BRUSHER TENDER someone who was confirmed or suspected to have Coronavirus / COVID-19? documented as of this encounter Last Filed [...] your Blood Pressure Doris Glez, blood pressure Rhiannon, NIKITA once a day documented as of this encounter Results Not on filedocumented in this encounter Visit Diagnoses Diagnosis Essential hypertension - Primary Unspecified essential hypertension documented in this encounter Insurance Payer Benefit Plan / Subscriber ID Effective Dates Phone Addre ss Type Group [facility] [id number] 2019-Present PPO/POS [facility] EMPLOYEE EMPLOYEE PLAN documented as of this encounter
[2020-10-23 06:03] LABS: SARS-COV-2 RT PCR NEGATIVE (NEGATIVE)
[2020-10-23 06:05] LABS: ALT/SGPT 24 U/L (12-78); AST/SGOT 19 U/L (15-37); Albumin 2.9 g/dL (3.4-5.0); Alkaline Phosphatase 75 U/L (45-117); BUN Blood Urea Nitrogen 17 mg/dL (7-18); Bicarbonate 22 mmol/L (21-32); Bilirubin Direct < 0.1 mg/dL (0-0.2); Bilirubin Total 0.5 mg/dL (0.2-1.0); Glucose Level 162 mg/dL (74-106); Potassium 3.1 mmol/L (3.5-5.1); Protein, Total 6.8 g/dL (6.4-8.2); Sodium Level 140 mmol/L (136-145)
[2020-10-23 06:06] LABS: Lipase 103 U/L (73-393)
[2020-10-23 06:07] LABS: Absolute Lymphocytes (CBC) 2.9 K/uL (0.7-4.9); Basophils % 0.5 % (0-1.3); Hematocrit 49.1 % (36.0-45.0); Lymphocytes % 8.8 % (15.3-44.8); MPV 9.2 fL (7.6-11.3); RBC Red Blood Cell Count 5.47 M/uL (3.86-4.86)
[2020-10-23 06:09] LABS: Blood Morphology Comment NOT SEEN (NOT SEEN); Platelet Estimate ADEQ
--- NOTE | 2020-10-23 06:09 | P.HP ---
Certification for Inpatient With expected LOS: >2 Midnights Patient will require the following post-hospital care: None Practitioner: I am a practitioner with admitting privileges, knowledge of patient current condition, hospital course, and medical plan of care. Services: Services provided to patient in accordance with Admission requirements found in Title 42 Section 412.3 of the Code of Federal Regulations Patient History Date of Service: 10/23/20 Reason for admission: diarrhea, syncope History of Present Illness: 50 yr old female with family hx of mother with colon cancer , admitted after devloping recurrent bouts of abdominal cramps since last 4 days , seen in ER and CT abdomen was negative except for scattered diverticula . SHE WAS SENT HOME AFTER PAIN MEDS BUT DEVELOPED new onset bouts of diarfhea, vomiting and chills this evening . SHE FEELS SHE PASSED OUT IN THE BATHROOM BUT WAS ABLE TO GET UP she was seen in the ER and noted with systolic BP to the 60s but improevd with 2 L IVF boluses . she continued to have profuse diarrhea but nausea has improved , no sick contact , She report family hx of recurrent bouts of diarrhea including in a sister but no prior colonoscopy - Past Medical/Surgical History Has patient received pneumonia vaccine in the past: No Diabetic: No Past Medical History: Patient denies medical history Past Surgical History: Patient denies surgical history - Social History Smoking Status: Never smoker Patient receptive to therapy: No Alcohol use: No CD- Drugs: No Caffeine use: No Place of Residence: Home Review of Systems 10-point ROS is otherwise unremarkable Physical Examination - Physical Exam General: Alert, In no apparent distress, Oriented x3, Obese HEENT: Atraumatic, Normocephalic, PERRLA Neck: Supple, 2+ carotid pulse no bruit, JVD not distended Respiratory: Clear to auscultation bilaterally, Normal air movement Cardiovascular: No edema, Normal pulses, Regular rate/rhythm, Normal S1 S2 Capillary refill: <2 Seconds Gastrointestinal: Normal bowel sounds, Soft and benign, Non-distended, No as cites, No tenderness Musculoskeletal: No clubbing, No swelling Integumentary: No rashes, No breakdown, No significant lesion Neurological: Normal speech, Normal strength at 5/5 x4 extr, Normal tone - Studies Laboratory Data (last 24 hrs) 10/23/20 03:30: Creatinine 1.34 H Assessment and Plan - Problems (Diagnosis) (1) Colitis Current Visit: Yes Status: Acute (2) Hypotension Current Visit: Yes Status: Acute (3) Sepsis Current Visit: Yes Status: Acute (4) ARF (acute renal failure) Current Visit: Yes Status: Acute (5) Leucocytosis Current Visit: Yes Status: Acute - Advance Directives Does patient have a Living Will: No Does patient have a Durable POA for Healthcare: No Physician Review: Patient Assessed, Agree with Above Assessment and Plan Physician Review Additional Text: Presuemd Colitis with sepsis - will repeat abdomninal CT - may be due to infectious etiology - start emprical flagyl and levquin -follow stool culture and sens - r/o C diff but doubt - may need GI eval - start clear liquis intake for now since resolcing nausea -follow repeat lactate level prior elevated # Hypotension -improving with IVF -c/w # ARF - likely pre-renal - follow with IVF use - consult renal to follow DVT prop - sc heparin Time Spent Managing Pts Care (In Minutes): 65
[2020-10-23] MEDS ORDERED: POTASSIUM 25 MEQ EFFERV TAB PO ONE (06:13)
[2020-10-23] MEDS ORDERED: HYDRALAZINE HCL 20 MG/ML VIAL IV PRN (06:13)
--- NOTE | 2020-10-23 06:19 | EDPHYS ---
Physician Documentation [facility] Name: Monse Wright Age: 50 yrs Sex: Female : 1970 Arrival Date: 10/23/2020 Time: 01:50 Bed 27 Private MD: ED Physician Emmanuel Navas HPI: 10/23 02:20 This 50 yrs old Female presents to ER via EMS with complaints of Abdominal pkl Pain, Near Syncope. 02:20 The patient presents with abdominal pain that is diffuse. Onset: The symptoms/episode pkl began/occurred just prior to arrival, 4 hour(s) ago. Associated signs and symptoms: Pertinent positives: nausea, vomiting, and diarrhea, syncope. Patient was seen in this ER 2 days ago for similar compaints. Historical: - Allergies: 03:35 Lipitor; mg2 - Immunization history:: Adult Immunizations unknown. - Social history:: Smoking status: unknown. ROS: 02:20 Eyes: Negative for injury, pain, redness, and discharge, ENT: Negative for injury, pkl pain, and discharge, Neck: Negative for injury, pain, and swelling, Cardiovascular: Negative for chest pain, palpitations, and edema, Respiratory: Negative for shortness of breath, cough, wheezing, and pleuritic chest pain. 02:20 Abdomen/GI: Positive for abdominal pain, nausea, vomiting, and diarrhea, of the right upper quadrant, left upper quadrant, right lower quadrant and left lower quadrant. 02:20 Back: Negative for acute changes. 02:20 : Negative for urinary symptoms. 02:20 MS/extremity: Negative for acute changes. 02:20 Skin: Negative for rash. 02:20 Neuro: Positive for syncope. Exam: 02:20 Head/Face: Normocephalic, atraumatic. Eyes: Pupils equal round and reactive to light, pkl extra-ocular motions intact. Lids and lashes normal. Conjunctiva and sclera are non-icteric and not injected. Cornea within normal limits. Periorbital areas with no swelling, redness, or edema. ENT: Nares patent. No nasal discharge, no septal abnormalities noted. Tympanic membranes are normal and external auditory canals are clear. Oropharynx with no redness, swelling, or masses, exudates, or evidence of obstruction, uvula midline. Mucous membranes moist. Neck: Trachea midline, no thyromegaly or masses palpated, and no cervical lymphadenopathy. Supple, full range of motion without nuchal rigidity, or vertebral point tenderness. No Meningismus. Chest/axilla: Normal chest wall appearance and motion. Nontender with no deformity. No lesions are appreciated. Cardiovascular: Regular rate and rhythm with a normal S1 and S2. No gallops, murmurs, or rubs. Normal PMI, no JVD. No pulse deficits. Respiratory: Lungs have equal breath sounds bilaterally, clear to auscultation and percussion. No rales, rhonchi or wheezes noted. No increased work of breathing, no retractions or nasal flaring. 02:20 Abdomen/GI: Bowel sounds: normal, Palpation: soft, mild abdominal tenderness, in the right upper quadrant, left upper quadrant, right lower quadrant and left lower quadrant. 02:20 Back: Exam negative for acute changes. 02:20 : Exam negative for acute changes. 02:20 Musculoskeletal/extremity: Exam is negative for acute changes. 02:20 Skin: Exam negative for rash. 02:20 Neuro: Orientation: appropriate for stated age, Mentation: is normal, Cranial nerves: grossly normal, Motor: moves all fours. Vital Signs: 01:55 BP 76 / 50; Pulse 75; Resp 18; Temp 98; Pulse Ox 98% on R/A; ea 02:14 BP 60 / 41; Pulse 78; Resp 22; Pulse Ox 98% on R/A; mg2 02:34 BP 81 / 55; Pulse 86; Resp 20; Pulse Ox 100% ; ea 03:08 BP 101 / 89; Pulse 92; Resp 20; Pulse Ox 98% ; ea 03:25 Weight 88.45 kg (R); sg 03:33 Height 5 ft. 6 in. (167.64 cm); mg2 03:49 BP 99 / 53; Pulse 97; Resp 20; Pulse Ox 99% ; ea 04:41 BP 133 / 84; Pulse 83; Resp 18; Pulse Ox 97% on R/A; mg2 05:06 BP 123 / 67; Pulse 83; Resp 18; Temp 98; Pulse Ox 98% on R/A; ea 03:33 Body Mass Index 31.47 (88.45 kg, 167.64 cm) mg2 MDM: 01:54 Patient medically screened. pkl 04:57 Data reviewed: vital signs, nurses notes, lab test result(s), EKG, radiologic studies, pkl CT scan, plain films. ED course: Talked to Dr. Parrish, admit. 10/23 02:03 Order name: Basic Metabolic Panel mg2 10/23 02:03 Order name: CBC with Diff mg2 10/23 02:03 Order name: Hepatic Function mg2 10/23 02:03 Order name: Lipase mg2 10/23 02:09 Order name: Type And Screen pkl 10/23 02:12 Order name: UDS pkl 10/23 02:12 Order name: COVID-19 pkl 10/23 02:12 Order name: Flu pkl 10/23 02:13 Order name: Blood Culture Adult (2) pkl 10/23 02:13 Order name: Lactate pkl 10/23 03:28 Order name: Creatinine, Serum ea 10/23 03:44 Order name: Stool Culture pkl 10/23 06:19 Order name: Creatinine; Complete Time: 06:20 EDMS 10/23 06:19 Order name: COVID-19/FLU A+B; Complete Time: 06:20 EDMS 10/23 02:12 Order name: XRAY CXR (1 view) pkl 10/23 06:19 Order name: Basic Metabolic Panel; Complete Time: 06:20 EDMS 10/23 06:19 Order name: Liver (Hepatic) Function; Complete Time: 06:20 EDMS 10/23 06:19 Order name: Lipase; Complete Time: 06:20 EDMS 10/23 06:19 Order name: Lactate; Complete Time: 06:20 EDMS 10/23 06:19 Order name: CBC with Automated Diff; Complete Time: 06:20 EDMS 10/23 06:19 Order name: Manual Differential; Complete Time: 06:20 EDMS 10/23 06:55 Order name: Type and Screen EDMS 10/23 06:56 Order name: CORONAVIRUS EDMS 10/23 06:56 Order name: Influenza Screen (A EDMS 10/23 06:57 Order name: Blood Culture EDMS 10/23 08:30 Order name: Stool Culture EDMS 10/23 09:00 Order name: Lactate Sepsis 2 HR Follow-up EDMS 10/23 09:53 Order name: ABO/RH no charge EDMS 10/23 11:21 Order name: C.difficile GDH Ag EDMS 10/23 18:28 Order name: Lactate EDMS 10/23 02:03 Order name: IV Saline Lock; Complete Time: 02:34 mg2 10/23 02:03 Order name: Labs collected and sent; Complete Time: 02:34 mg2 10/23 02:12 Order name: Morejon; Complete Time: 02:33 pkl 10/23 02:12 Order name: EKG; Complete Time: 06:20 pkl 10/23 02:13 Order name: CT Abd/Pelvis - IV Contrast Only pkl 10/23 08:45 Order name: RAD EDMS 10/23 11:41 Order name: CT EDMS Administered Medications: 02:03 Drug: NS 0.9% 1000 ml Route: IV; Rate: 1000 ml; Site: right hand; mg2 02:03 Drug: Zofran (Ondansetron) 4 mg Route: IVP; Site: right hand; mg2 03:38 Follow up: Response: No adverse reaction ea 02:16 Drug: NS 0.9% 1000 ml Route: IV; Rate: 1000 ml; Site: right hand; mg2 03:38 Follow up: Response: No adverse reaction; IV Status: Completed infusion; IV Intake: ea 1000ml 03:07 Drug: Potassium Chloride 20 mEq Route: IV; Rate: calculated rate; Site: left ea antecubital; 03:38 Drug: Flagyl 500 mg Volume: 100 ml; Route: IVPB; Rate: 200 ml/hr; Infused Over: 30 ea mins; Site: right hand; 04:27 Follow up: Response: No adverse reaction; IV Status: Completed infusion ea 04:28 Drug: LevaQUIN 750 mg Volume: 150 ml; Route: IVPB; Infused Over: 90 mins; Site: right ea hand; 05:01 Drug: morphine 2 mg Route: IVP; Site: left antecubital; ea 05:16 Drug: LoMOTIL 2 tabs Route: PO; ea 06:21 Drug: Demerol 50 mg Route: IVP; Site: right hand; mg2 Disposition: 10/23/20 05:00 Hospitalization ordered by Julio Cesar Parrish for Inpatient Admission. Preliminary diagnosis is Abdominal pain. Gastroenteritis. Sepsis. - Bed requested for Telemetry/MedSurg (Inpatient). - Status is Inpatient Admission. dm5 - Condition is Stable. - Problem is new. - Symptoms have improved. Critical care time excluding procedures: 04:57 Critical care time: Bedside Care: 40 minutes. Total time: 40 minutes pk Signatures: Dispatcher [employer] EDMS Ary Manuel RN NIKITA dm5 Julienne Gary RN RN dw Lam, Pin, MD MD pkl Bianka Hampton RN RN tl1 Nahomy Ledbetter RN RN ea Edilberto Montanez RN RN mg2 Corrections: (The following items were deleted from the chart) 07:05 05:00 Hospitalization Ordered by Julio Cesar Parrish MD for Inpatient Admission. Preliminary tl1 diagnosis is Abdominal pain. Gastroenteritis. Sepsis. Bed requested for Telemetry/MedSurg (Inpatient). Status is Inpatient Admission. Condition is Stable. Problem is new. Symptoms have improved. pkl 18:31 07:05 10/23/2020 05:00 Hospitalization Ordered by Julio Cesar Parrish MD for Inpatient dw Admission. Preliminary diagnosis is Abdominal pain. Gastroenteritis. Sepsis. Bed requested for [facility] ER HOLD. Status is Inpatient Admission. Condition is Stable. Problem is new. Symptoms have improved. tl1 18:33 18:31 10/23/2020 05:00 Hospitalization Ordered by Julio Cesar Parrish MD for Inpatient dw Admission. Preliminary diagnosis is Abdominal pain. Gastroenteritis. Sepsis. Bed requested for Telemetry/MedSurg (Inpatient). Status is Inpatient Admission. Condition is Stable. Problem is new. Symptoms have improved. dw 19:11 18:33 10/23/2020 05:00 Hospitalization Ordered by Julio Cesar Parrish MD for Inpatient dm5 Admission. Preliminary diagnosis is Abdominal pain. Gastroenteritis. Sepsis. 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 Status is Inpatient Admission. Condition is Stable. Problem is new. Symptoms have improved. dw 20:02 19:11 10/23/2020 05:00 Hospitalization Ordered by Julio Cesar Parrish MD for Inpatient dm5 Admission. Preliminary diagnosis is Abdominal pain. Gastroenteritis. Sepsis. Bed requested for Telemetry/MedSurg (Inpatient). Status is Inpatient Admission. Condition is Stable. Problem is new. Symptoms have improved. dm5
--- NOTE | 2020-10-23 06:19 | ER ---
Nurse's Notes [facility] Name: Monse Wright Age: 50 yrs Sex: Female : 1970 Arrival Date: 10/23/2020 Time: 01:50 Bed 27 Private MD: Diagnosis: Abdominal pain. Gastroenteritis. Sepsis Presentation: 10/23 01:51 Chief complaint: EMS states: Toned out family noted pt having severe abdominal pain ea with syncopal episodes. EMS reports giving 100 mcg fentanyl IV. Pt has IV 20G to right hand established by EMS. Coronavirus screen: At this time, the client does not indicate any symptoms associated with coronavirus-19. Ebola Screen: No symptoms or risks identified at this time. Initial Sepsis Screen: Does the patient meet any 2 criteria? No. Patient's initial sepsis screen is negative. Does the patient have a suspected source of infection? No. Patient's initial sepsis screen is negative. Risk Assessment: Do you want to hurt yourself or someone else? Patient reports no desire to harm self or others. Onset of symptoms was October 23, 2020. 01:51 Method Of Arrival: EMS: [facility] ea 01:51 Acuity: NOLAN 3 ea Triage Assessment: 01:54 General: Appears uncomfortable, Behavior is restless. Pain: Complains of pain in ea abdomen. Neuro: Level of Consciousness is awake, Oriented to person, place. Cardiovascular: Patient's skin is warm and dry. Respiratory: Airway is patent Respiratory effort is even, unlabored, Respiratory pattern is regular, symmetrical. GI: Abdomen is non-distended. Derm: Skin is intact, Skin is dry, Skin is dusky, Skin temperature is warm. Historical: - Allergies: 03:35 Lipitor; mg2 - Immunization history:: Adult Immunizations unknown. - Social history:: Smoking status: unknown. Screenin:52 Abuse screen: Denies threats or abuse. Nutritional screening: No deficits noted. ea Tuberculosis screening: No symptoms or risk factors identified. Fall Risk IV access (20 points). Assessment: 02:14 General: Appears uncomfortable, Behavior is restless. Pain: Complains of pain in mg2 abdomen. Neuro: Level of Consciousness is awake, alert, obeys commands, Oriented to person, place, time, situation. Cardiovascular:. Respiratory: Airway is patent Respiratory effort is even, unlabored, Respiratory pattern is regular, symmetrical. GI: Reports lower abdominal pain, upper abdominal pain, diarrhea, nausea, vomiting. EENT: No signs and/or symptoms were reported regarding the EENT system. Derm: Skin is intact, is healthy with good turgor, Skin is dusky. Musculoskeletal: Circulation, motion, and sensation intact. 03:07 General: Appears uncomfortable, Behavior is cooperative. Neuro: Level of Consciousness ea is awake, alert, obeys commands, Oriented to person, place, time. Respiratory: Airway is patent Respiratory effort is even, unlabored, Respiratory pattern is regular, symmetrical. Derm: Skin is pink, warm \T\ dry. 04:55 Reassessment: Patient appears in no apparent distress at this time. Patient and/or mg2 family updated on plan of care and expected duration. Pain level reassessed. Patient is alert, oriented x 3, equal unlabored respirations, skin warm/dry/pink. 05:07 Reassessment: dr Parrish at bedside examining the patient. mg2 Vital Signs: 01:55 BP 76 / 50; Pulse 75; Resp 18; Temp 98; Pulse Ox 98% on R/A; ea 02:14 BP 60 / 41; Pulse 78; Resp 22; Pulse Ox 98% on R/A; mg2 02:34 BP 81 / 55; Pulse 86; Resp 20; Pulse Ox 100% ; ea 03:08 BP 101 / 89; Pulse 92; Resp 20; Pulse Ox 98% ; ea 03:25 Weight 88.45 kg (R); sg 03:33 Height 5 ft. 6 in. (167.64 cm); mg2 03:49 BP 99 / 53; Pulse 97; Resp 20; Pulse Ox 99% ; ea 04:41 BP 133 / 84; Pulse 83; Resp 18; Pulse Ox 97% on R/A; mg2 05:06 BP 123 / 67; Pulse 83; Resp 18; Temp 98; Pulse Ox 98% on R/A; ea 03:33 Body Mass Index 31.47 (88.45 kg, 167.64 cm) mg2 ED Course: 01:50 Patient arrived in ED. sg 01:51 Nahomy Ledbetter, RN is Primary Nurse. ea 01:52 Triage completed. ea 01:53 Patient has correct armband on for positive identification. Placed in gown. Bed in low ea position. Call light in reach. Side rails up X2. athletic monitor on. Pulse ox on. NIBP on. 01:53 Arm band placed on right wrist. Patient placed in an exam room, on a stretcher, on ea pulse oximetry. 01:54 Emmanuel Navas MD is Attending Physician. pkl 02:00 Inserted saline lock: 18 gauge in left antecubital area, using aseptic technique. Blood ea collected. 02:14 No provider procedures requiring assistance completed. Maintain EMS IV. Dressing mg2 intact. Good blood return noted. Site clean \T\ dry. Gauge \T\ site: 20 \T\ RH. 02:20 Notified ED physician of a critical lab result(s). WBC elevated. sg 02:33 Morejon cath inserted, using sterile technique, 18 Fr., by oh, balloon inflated, to ea gravity drainage. 03:11 COVID swab sent to lab. Flu and/or RSV swab sent to lab. mg2 03:19 Notified ED physician of a critical lab result(s). Lactate elevated, 5. sg 04:00 Cleaned of incontinence. Linen changed. mg2 04:55 Door closed. Warm blanket given. mg2 04:58 Julio Cesar Parrish MD is Hospitalizing Provider. pkl 07:17 Primary Nurse role handed off by Nahomy Ledbetter RN bd Administered Medications: 02:03 Drug: NS 0.9% 1000 ml Route: IV; Rate: 1000 ml; Site: right hand; mg2 02:03 Drug: Zofran (Ondansetron) 4 mg Route: IVP; Site: right hand; mg2 03:38 Follow up: Response: No adverse reaction ea 02:16 Drug: NS 0.9% 1000 ml Route: IV; Rate: 1000 ml; Site: right hand; mg2 03:38 Follow up: Response: No adverse reaction; IV Status: Completed infusion; IV Intake: ea 1000ml 03:07 Drug: Potassium Chloride 20 mEq Route: IV; Rate: calculated rate; Site: left ea antecubital; 03:38 Drug: Flagyl 500 mg Volume: 100 ml; Route: IVPB; Rate: 200 ml/hr; Infused Over: 30 ea mins; Site: right hand; 04:27 Follow up: Response: No adverse reaction; IV Status: Completed infusion ea 04:28 Drug: LevaQUIN 750 mg Volume: 150 ml; Route: IVPB; Infused Over: 90 mins; Site: right ea hand; 05:01 Drug: morphine 2 mg Route: IVP; Site: left antecubital; ea 05:16 Drug: LoMOTIL 2 tabs Route: PO; ea 06:21 Drug: Demerol 50 mg Route: IVP; Site: right hand; mg2 Intake: 03:38 IV: 1000ml; Total: 1000ml. ea Outcome: 05:00 Decision to Hospitalize by Provider. pkl 20:02 Patient left the ED. dm5 Signatures: Monse Hunter Deana, RN RN dm5 Taz Josue RN Emmanuel Green MD MD pkNahomy Renteria RN RN ea Gardose, Michele, RN RN mg2 Corrections: (The following items were deleted from the chart) 01:54 01:51 Chief complaint: EMS states: Toned out family noted pt having severe abdominal ea pain with syncopal episodes ea
[2020-10-23 06:31] VITALS: BMI 31.4
[2020-10-23] MEDS ORDERED: Levofloxacin500mg IV 500 MG/100 ML BAG IV SCH (07:00)
[2020-10-23] MEDS: ONDANSETRON 4 MG/2 ML VIAL IV PRN ×2 (08:21→21:24)
[2020-10-23] MEDS: MORPHINE 2 MG/ML SYR IV PRN ×4 (08:22→21:28)
[2020-10-23] MEDS ORDERED: MORPHINE 2 MG/ML SYR ONE ×2 (08:29→17:35)
[2020-10-23] MEDS ORDERED: ONDANSETRON 4 MG/2 ML VIAL ONE (08:30)
--- NOTE | 2020-10-23 08:45 | RAD REPORT ---
EXAM DESCRIPTION: RAD - Chest Single View - 10/23/2020 6:48 am CLINICAL HISTORY: abd. pain Chest pain. COMPARISON: No comparisons FINDINGS: Portable technique limits examination quality. The lungs are grossly clear. The heart is normal in size. No displaced fractures. IMPRESSION: No acute intrathoracic process suspected.
[2020-10-23] MEDS ORDERED: FAMOTIDINE 20 MG TAB PO SCH (09:00)
[2020-10-23] MEDS: METRONIDAZOLE 500mg IVPB 500 MG/100 ML BAG IV SCH ×2 (09:10→17:22)
[2020-10-23] MEDS: ENOXAPARIN 40 MG/0.4 ML SQ SCH (09:12)
[2020-10-23] MEDS ORDERED: Levofloxacin500mg IV 500 MG/100 ML BAG IV ONE (09:23)
[2020-10-23] MEDS ORDERED: POTASSIUM 25 MEQ EFFERV TAB ONE (09:23)
[2020-10-23] MEDS ORDERED: FAMOTIDINE 20 MG TAB ONE (09:23)
[2020-10-23] MEDS ORDERED: ENOXAPARIN 40 MG/0.4 ML SQ ONE (09:24)
[2020-10-23] MEDS ORDERED: METRONIDAZOLE 500mg IVPB 500 MG/100 ML BAG IV ONE ×2 (09:24→17:37)
[2020-10-23] MEDS: NS KCL 20MEQ 20 MEQ/1,000 ML BAG IV SCH ×3 (10:49→23:00)
[2020-10-23 11:17] LABS: C.diff Antigen/Toxin Ag neg : Tox neg (NEG : NEG)
--- NOTE | 2020-10-23 11:40 | RAD REPORT ---
EXAM DESCRIPTION: CT Abdomen and Pelvis With Intravenous Contrast CLINICAL HISTORY: The patient is 50 years old and is Female; ABDOMINAL PAIN. ISOVUE 300 100ML TECHNIQUE: Axial computed tomography images of the abdomen and pelvis with intravenous contrast. S agittal and coronal reformatted images were created and reviewed. This CT exam was performed using one or more of the following dose reduction techniques: automated exposure control, adjustment of t he mA and/or kV according to patient size, and/or use of iterative reconstruction technique. CONTRAST: 100 mL of Isovue-300 COMPARISON: CT of the abdomen and pelvis October 20, 2020 FINDINGS: LUNG BASES: Unremarkable. No mass. No consolidation. ABDOMEN: LIVER: The liver is enlarged and diffusely fatty. GALLBLADDER AND BILE DUCTS: No calcified stones. No ductal dilation. PANCREAS: No ductal dilation. No mass. SPLEEN: Unremarkable. ADRENALS: Hyperplasia left adrenal gland is noted. KIDNEYS AND URETERS: Left intrarenal calcification is present. The kidneys enhance symmetrically . No obstructing renal or ureteral calculus is seen. STOMACH AND BOWEL: The stomach is minimally fluid filled. Interval development of extensive muco pamela thickening involving the proximal small bowel with adjacent edema in the mesentery is noted. The remainder the small bowel is normal in appearance. Stool is present throughout the colon. Colonic wal l thickening with surrounding inflammatory stranding involving the distal transverse and left colon i s present. There is no evidence of obstruction. PELVIS: APPENDIX: The appendix is surgically absent. BLADDER: A Morejon catheter is present within the decompressed bladder. REPRODUCTIVE: Fibroid uterus is noted. ABDOMEN and PELVIS: INTRAPERITONEAL SPACE: Trace free fluid is present within the pelvis which is likely physiologic . No free air. BONES/JOINTS: No acute fracture. SOFT TISSUES: The soft tissues are normal. VASCULATURE: Minimal atherosclerosis of the vasculature is present. The vessels are normal in ca liber. No abdominal aortic aneurysm. LYMPH NODES: Unremarkable. No enlarged lymph nodes. IMPRESSION: Interval development of enteritis involving the proximal small bowel which demonstrate s ignificant wall thickening and surrounding inflammation. Adjacent edema within the mesentery is noted . There has also been development of extensive mucosal thickening with surrounding inflammation invol ving the distal transverse and left colon. Infectious, inflammatory, or ischemic enteritis and coliti s is within the differential. Correlation with patient's laboratory values is recommended. Electronically signed by: Trixie Lamb MD 10/23/2020 5:02 AM MANDATE RETAIL SERVICE MERCHANDISER Due to temporary technical issues with the PACS/Fluency reporting system, reports are being signed by the in house radiologist without review as a courtesy to ensure prompt reporting. The interpreting r adiologist is fully responsible for the content of the report.
[2020-10-23] MEDS ORDERED: NA CHLORIDE 0.9% 500 ML IV ONE (11:56)
[2020-10-23] MEDS: DICYCLOMINE HCL 10 MG CAP PO PRN ×2 (13:48→21:29)
[2020-10-23] MEDS ORDERED: DICYCLOMINE HCL 10 MG CAP ONE (14:03)
--- NOTE | 2020-10-23 16:10 | EKG ---
Test Date: 2020-10-23 Test Time: 02:15:31 White Mixing Operator: MG MEASUREMENT RESULTS: Intervals: Rate: 79 [place]: 126 QRSD: 92 QT: 424 QTc: 486 [place]: P: 35 [place]: 126 QRS: 61 T: 62 INTERPRETIVE STATEMENTS: Normal sinus rhythm Prolonged QT Abnormal ECG No previous ECG available for comparison Electronically Signed On 10-23-20 16:08:37 LIFE SCIENCE TEACHER by Angelito Lauren
--- NOTE | 2020-10-23 16:53 | P.PN ---
Date of Service: 10/23/20 Patient complaining of severe pain in the abdomen. She had a bowel movement which was blood stained. Stool for C. diff is negative. CT abdomen and pelvis result reviewed and reporting thickened small bowel and colon wall. Differential diagnosis: Infectious enterocolitis Ischemic bowel Inflammatory bowel disease. plan: IV hydration Repeat blood Continue IV antibiotics. IV morphine p.r.n. Trial of IV steroid.
[2020-10-23] MEDS: METHYLPREDNISOLONE 40 MG INJ IV SCH (17:22)
[2020-10-23] MEDS ORDERED: METHYLPREDNISOLONE 40 MG INJ ONE (17:37)
[2020-10-23] MEDS ORDERED: SODIUM CHLORIDE 0.9% 10ML INJ IV PRN (19:03)
[2020-10-23] MEDS: PANTOPRAZOLE 40 MG INJ IVP SCH (22:35)
[2020-10-23] MEDS: CETIRIZINE HCL 5 MG TABLET PO PRN (22:35)
[2020-10-24] MEDS: METHYLPREDNISOLONE 40 MG INJ IV SCH ×3 (00:45→18:01)
[2020-10-24] MEDS: METRONIDAZOLE 500mg IVPB 500 MG/100 ML BAG IV SCH ×3 (00:45→18:00)
[2020-10-24] MEDS: NS KCL 20MEQ 20 MEQ/1,000 ML BAG IV SCH ×2 (00:50→07:00)
--- NOTE | 2020-10-24 01:27 | CON ---
Date of Consultation: 10/23/2020 Reason For Consultation: Elevated BUN and creatinine. History Of Present Illness: This is a 50-year-old female with significant past medical history of colon cancer, hypertension, patient was in her regular state of health, came to the hospital complaining of abdominal pain and diarrhea for the last couple of days. Upon arrival to the hospital, the patient had severe leukocytosis, elevation in BUN and creatinine. For that reason, we have been consulted. Creatinine upon arrival 1.3 with GFR of 46. Repeated today 1.5, GFR of 36. Patient denied taking any nonsteroidal. No IV contrast. Reviewing the record for the patient on the of this month, creatinine was 0.7 with GFR of 79. Apparently, the patient did undergo a CT scan with IV contrast on the . Past Medical History: 1. Hypertension. 2. Colon cancer. Past Surgical History: Colon cancer. Social History: Denies smoking. Denies drinking. Denies drugs abuse. Family History: Positive for hypertension. Home Medications: Include Reglan, carvedilol, amlodipine, hydrochlorothiazide, omeprazole, lisinopril, hydralazine. Current Medications: Include dicyclomine, cetirizine, hydralazine, methylprednisolone, Zofran, pantoprazole, KCl. Review of Systems: Head and Neck: No red eye. No ear pain. GI: Has diarrhea. : No polyuria. No dysuria. No hematuria. Public Stenographer: No vaginal discharge. Respiratory: No shortness of breath. Cardiovascular: No chest pain. Endocrine: No polydipsia. Skin: No rash. Neuro: Has neuropathy. Musculoskeletal: No joint pain. Physical Examination: Vital Signs: When I saw the patient, blood pressure 164/76, pulse of 88. Chest: Clear to auscultation. Heart: S1, S2. Systolic murmur. Abdomen: Soft, tender. No guarding or rebound. Extremities: No edema. Neurologic: Alert. No focality. Laboratory Data: Sodium 140, potassium 3.1, bicarb 22, BUN 70, creatinine 1.5, calcium 9.6. WBC 32.7, H and H 15.8/49.1. CT of abdomen and pelvis with contrast have been repeated again on the , no obstruction. Assessment And Plan: 1. Acute kidney injury secondary to contrast-induced nephropathy superimposed with hydrochlorothiazide and lisinopril. She is still on the dry side. I am going to bolus the patient with normal saline and we will go ahead and increase the IV fluid rate to establish better volume control. It is passing 48 hours. There is no point from adding any Mucomyst even though that there is no data to support it. 2. Hypertension with the presence of acute kidney injury. Please hold Lasix, hold lisinopril. 3. Hypokalemia. We will supplement. 4. Colitis. Continue current antibiotic. We will follow up with primary. Dr. Parrish for allowing us to participate in the care of your patient. Time spent discussing with the patient, [id number], using the translation, discussing with the staff and placing an order, discussing with over subspecialty and hospitalist 45 minutes. LINCOLN Voice ID: [id number] Report ID: [id number]
[2020-10-24 03:04] LABS: Barbiturates NEGATIVE (NEGATIVE); Benzodiazepines NEGATIVE (NEGATIVE); Cocaine NEGATIVE (NEGATIVE); METHAMPHETAM NEGATIVE (NEGATIVE); Methadone NEGATIVE (NEGATIVE); Opiates NEGATIVE (NEGATIVE); Phencyclidine NEGATIVE (NEGATIVE); THC Cannibis NEGATIVE (NEGATIVE)
[2020-10-24 03:05] LABS: Urine Protein/Creatinine Ratio 0.33 ratio (<0.15)
[2020-10-24] MEDS: MORPHINE 2 MG/ML SYR IV PRN ×4 (03:05→23:58)
[2020-10-24 03:15] LABS: Urine Appearance CLEAR; Urine Bilirubin NEGATIVE (NEG); Urine Blood NEGATIVE (NEG); Urine Color YELLOW; Urine Glucose NEGATIVE (NEG); Urine Protein NEGATIVE (NEG); Urine Urobilinogen 0.2 mg/dL (0.2-1.0)
[2020-10-24 03:32] LABS: Urine Microscopic Reflex NO UMIC
[2020-10-24 06:09] LABS: Absolute Lymphocytes (CBC) 0.9 K/uL (0.7-4.9); Basophils % 0.4 % (0-1.3); Hematocrit 35.1 % (36.0-45.0); Lymphocytes % 5.8 % (15.3-44.8); MPV 8.9 fL (7.6-11.3)
[2020-10-24 06:50] LABS: ALT/SGPT 17 U/L (12-78); AST/SGOT 12 U/L (15-37); Albumin 2.5 g/dL (3.4-5.0); Alkaline Phosphatase 55 U/L (45-117); BUN Blood Urea Nitrogen 9 mg/dL (7-18); Bicarbonate 24 mmol/L (21-32); Bilirubin Total 0.2 mg/dL (0.2-1.0); Glucose Level 126 mg/dL (74-106); HDL Cholesterol 35 mg/dL (40-60); LDL Cholesterol, Calculated 110 (<130); Magnesium 1.9 mg/dL (1.8-2.4); Phosphorus 1.9 mg/dL (2.5-4.9); Potassium 4.3 mmol/L (3.5-5.1); Protein, Total 5.9 g/dL (6.4-8.2); Sodium Level 141 mmol/L (136-145)
[2020-10-24 08:02] LABS: Blood Morphology Comment NOT SEEN (NOT SEEN); Platelet Estimate ADEQ; White Blood Cell Scan OK (OK)
[2020-10-24] MEDS: PANTOPRAZOLE 40 MG INJ IVP SCH ×2 (09:00→22:07)
[2020-10-24] MEDS: CETIRIZINE HCL 5 MG TABLET PO PRN (09:13)
[2020-10-24] MEDS: Levofloxacin500mg IV 500 MG/100 ML BAG IV SCH (09:14)
[2020-10-24] MEDS: ENOXAPARIN 40 MG/0.4 ML SQ SCH (09:15)
[2020-10-24] MEDS: DICYCLOMINE HCL 10 MG CAP PO PRN ×3 (09:16→22:12)
--- NOTE | 2020-10-24 14:39 | PN ---
Date of Progress Note: 10/24/2020 Subjective: The patient is doing good better. The patient was admitted with acute kidney injury secondary to GI losses/contrast induced nephropathy. The patient's after hydration kidney function has been normalized. Physical Examination: Vital Signs: When I saw the patient; blood pressure 132/61, pulse of 72, afebrile. The patient had good urine output of 3100. Chest: Clear to auscultation. Heart: S1, S2. Regular. Abdomen: Soft, nontender. Extremities: No edema. Neurologic: Alert. No focal. Laboratory Data: WBC 15.9, H and H 11.8/35.1, platelets 285. Sodium 141, potassium 4.3, bicarb 24, BUN 9, creatinine 0.6, calcium 9, phosphorus 1.9, magnesium 1.9. Urinalysis negative for infection. PC ratio 0.3. CT negative for hydro. Assessment And Plan: 1. Acute kidney injury, multifactorial, secondary to IV contrast, prerenal secondary to gastrointestinal loss, recovered, resolved, nonoliguric. I am going to go ahead and discontinue IV fluids, discontinue Morejon. 2. Hypomagnesemia, hypophosphatemia. We will supplement. 3. Hypokalemia, status post supplement, resolved. 4. Gastroenteritis as by primary. Continue current treatment. Time spent discussing with the patient, [id number], using the translation, discussing with the staff and placing an order, discussing with over subspecialty and hospitalist 45 minutes. LINCOLN Voice ID: [id number] Report ID: [id number] MANISHA
--- NOTE | 2020-10-24 16:49 | P.PN ---
Subjective Date of Service: 10/24/20 Chief Complaint: diarrhea, syncope Patient states she feels much better today than yesterday. She reports less abdominal pain and less frequent diarrhea. She stated her stool is still blood-stained. She tolerated some liquid diet this morning. Physical Examination - Vital Signs Temperature: 98.1 F Blood Pressure: 168/77 Pulse: 66 Respirations: 20 Pulse Ox (%): 99 - Physical Exam General: Alert HEENT: Mucous membr. moist/pink Neck: Supple, JVD not distended Respiratory: Clear to auscultation bilaterally, Normal air movement Cardiovascular: No edema, Regular rate/rhythm, Normal S1 S2 Gastrointestinal: Normal bowel sounds, Soft and benign, No rebound, No guarding, Tenderness (Moderate tenderness) Musculoskeletal: No swelling, No tenderness Integumentary: No rashes, No erythema Neurological: Normal speech, Normal strength at 5/5 x4 extr Assessment And Plan - Current Problems (Diagnosis) (1) Enterocolitis Current Visit: Yes Status: Acute (2) Septic shock Current Visit: Yes Status: Acute (3) Hypovolemia Current Visit: Yes Status: Acute (4) ARF (acute renal failure) Current Visit: Yes Status: Acute - Plan Differential diagnosis for into colitis include inflammatory bowel disease versus infectious origin. Associated severe leukocytosis. C. diff is negative. WBC has trended down. Patient feeling better. Continue current antibiotics. Continue IV steroids to cover inflammatory disease. Trial of clear liquid diet. Acute renal failure has resolved. Nephrology input appreciated. Blood cultures: No growth to date. Stool culture is pending. Patient will need GI evaluation as an outpatient. Physician Review: Patient Assessed, Agree with Above Assessment and Plan
[2020-10-25] MEDS: METHYLPREDNISOLONE 40 MG INJ IV SCH ×3 (00:01→18:24)
[2020-10-25] MEDS: METRONIDAZOLE 500mg IVPB 500 MG/100 ML BAG IV SCH ×3 (00:01→18:24)
[2020-10-25 00:35] VITALS: O2SAT 100
[2020-10-25] MEDS: MORPHINE 2 MG/ML SYR IV PRN ×3 (06:00→20:07)
[2020-10-25 06:07] LABS: Absolute Lymphocytes (CBC) 1.3 K/uL (0.7-4.9); Basophils % 0.4 % (0-1.3); Hematocrit 36.8 % (36.0-45.0); Lymphocytes % 8.3 % (15.3-44.8); RBC Red Blood Cell Count 4.14 M/uL (3.86-4.86)
[2020-10-25 06:14] LABS: Albumin 2.8 g/dL (3.4-5.0); BUN Blood Urea Nitrogen 10 mg/dL (7-18); Bicarbonate 26 mmol/L (21-32); Glucose Level 123 mg/dL (74-106); Phosphorus 2.2 mg/dL (2.5-4.9); Sodium Level 142 mmol/L (136-145)
[2020-10-25] MEDS: PANTOPRAZOLE 40 MG INJ IVP SCH (09:00)
[2020-10-25] MEDS: Levofloxacin500mg IV 500 MG/100 ML BAG IV SCH (09:10)
[2020-10-25] MEDS: ENOXAPARIN 40 MG/0.4 ML SQ SCH (09:11)
[2020-10-25] MEDS: DICYCLOMINE HCL 10 MG CAP PO PRN (12:13)
[2020-10-25] MEDS ORDERED: HOME MED 1 EA UNK (Lisinopril [Zestril] 40 MG Tablet) PO SCH (12:15)
[2020-10-25] MEDS ORDERED: HYDRALAZINE HCL 25 MG TABLET PO SCH (12:15)
[2020-10-25] MEDS ORDERED: HOME MED 1 EA UNK (Cetirizine Hcl [Zyrtec] 10 MG Capsule) PO SCH (12:15)
[2020-10-25] MEDS ORDERED: lisinopriL 20 MG TAB PO SCH (13:00)
--- NOTE | 2020-10-25 13:31 | P.PN ---
Subjective Date of Service: 10/25/20 Chief Complaint: diarrhea, syncope Subjective Pt with HTN on multiple , medications , admitted with abd pain and colitis , had ISABELA Today cr down to baseline complaining of mild abdominal pain BP elevated , will dc lisniopril and add nifedipine will send fo rein/willi and and TSH level Physical exam General: AAOx3, NAD CHEST; CTAB, no wheezes or rales HEART : RRR. Normal S1,2 no murmur or rub Abd: soft, Nt Ext: no edema Skin : No rash ISABELA due to dehydration YVONNE resolved off IVF Hypokalemia resolved HTN will dc lisinopril and add Nifedipine will increase hydralazine will send for renin/willi tario Colitis improved cont ABx F/u stool studies total time spent 30min Physical Examination - Vital Signs Temperature: 98.1 F Blood Pressure: 181/84 Pulse: 64 Respirations: 16 Pulse Ox (%): 99 - Studies Microbiology Data (last 24 hrs): 10/23/20 05:00 Stool Culture & Sensitivity - Final Assessment And Plan Physician Review: Patient Assessed, Agree with Above Assessment and Plan
[2020-10-25] MEDS: hydroCHLOROthiazide 25 MG TAB PO SCH (13:39)
[2020-10-25] MEDS: carvediloL 25 MG TAB PO SCH (13:39)
[2020-10-25] MEDS: AMLODIPINE 10 MG TAB PO SCH (13:39)
[2020-10-25] MEDS: CETIRIZINE HCL 5 MG TABLET PO SCH (13:40)
--- NOTE | 2020-10-25 16:38 | P.PN ---
Subjective Date of Service: 10/25/20 Chief Complaint: diarrhea, syncope Patient still experiencing abdominal pain and not tolerating full liquid diet. Diarrhea has resolved. No bowel movement since yesterday. Physical Examination - Vital Signs Temperature: 98.1 F Blood Pressure: 181/84 Pulse: 64 Respirations: 16 Pulse Ox (%): 99 - Physical Exam General: Alert, In no apparent distress Respiratory: Clear to auscultation bilaterally, Normal air movement Cardiovascular: Regular rate/rhythm, Normal S1 S2 Gastrointestinal: Normal bowel sounds, Soft and benign, Tenderness (Moderate diffuse tenderness) Musculoskeletal: No swelling, No erythema Integumentary: No rashes Neurological: Normal gait, Normal strength at 5/5 x4 extr, Cranial nerves 3-12 intact - Studies Microbiology Data (last 24 hrs): 10/23/20 05:00 Stool Culture & Sensitivity - Final Assessment And Plan - Current Problems (Diagnosis) (1) Enterocolitis Current Visit: Yes Status: Acute (2) Septic shock Current Visit: Yes Status: Acute (3) Hypovolemia Current Visit: Yes Status: Acute (4) ARF (acute renal failure) Current Visit: Yes Status: Acute - Plan Differential diagnosis for into colitis include inflammatory bowel disease versus infectious origin. Associated severe leukocytosis. C. diff is negative. WBC has trended down to 15. Continue current antibiotics. Continue IV steroids to cover inflammatory disease. Continue clear liquid diet. Acute renal failure has resolved. Nephrology is following. Stool culture: No growth. Blood cultures: No growth to date. Patient will need GI evaluation as an outpatient. Will continue IV antibiotics and IV steroid for 1 more day and see if patient would tolerate full liquid diet before discharge. Physician Review: Patient Assessed, Agree with Above Assessment and Plan
[2020-10-25] MEDS: HYDRALAZINE HCL 25 MG TABLET PO SCH (23:47)
[2020-10-26] MEDS: METHYLPREDNISOLONE 40 MG INJ IV SCH ×2 (00:13→09:47)
[2020-10-26] MEDS: METRONIDAZOLE 500mg IVPB 500 MG/100 ML BAG IV SCH ×2 (00:13→09:48)
[2020-10-26] MEDS: MORPHINE 2 MG/ML SYR IV PRN ×2 (00:13→06:31)
[2020-10-26 05:54] LABS: Absolute Lymphocytes (CBC) 1.3 K/uL (0.7-4.9); Basophils % 0.2 % (0-1.3); Hematocrit 38.5 % (36.0-45.0); Lymphocytes % 11.5 % (15.3-44.8); MPV 8.5 fL (7.6-11.3); RBC Red Blood Cell Count 4.43 M/uL (3.86-4.86)
[2020-10-26 06:13] LABS: Albumin 2.9 g/dL (3.4-5.0); Phosphorus 2.9 mg/dL (2.5-4.9); Potassium 3.8 mmol/L (3.5-5.1)
[2020-10-26] MEDS ORDERED: PANTOPRAZOLE 40MG TABLET PO SCH (07:30)
[2020-10-26] MEDS: ENOXAPARIN 40 MG/0.4 ML SQ SCH (09:00)
[2020-10-26] MEDS: Levofloxacin500mg IV 500 MG/100 ML BAG IV SCH ×2 (09:00→10:59)
[2020-10-26] MEDS ORDERED: NIFEDIPINE XL 30 MG TABLET PO SCH (09:00)
[2020-10-26] MEDS ORDERED: HOME MED 1 EA UNK (Omeprazole [Omeprazole] 20 MG Capsule.Dr) PO SCH (09:00)
[2020-10-26 09:39] LABS: Blood Morphology Comment NOT SEEN (NOT SEEN); Platelet Estimate ADEQ; Platelets, Giant FEW PRESENT
[2020-10-26] MEDS: carvediloL 25 MG TAB PO SCH (09:45)
[2020-10-26] MEDS: AMLODIPINE 10 MG TAB PO SCH (09:45)
[2020-10-26] MEDS: hydroCHLOROthiazide 25 MG TAB PO SCH (09:46)
[2020-10-26] MEDS: HYDRALAZINE HCL 25 MG TABLET PO SCH (09:47)
[2020-10-26] MEDS: CETIRIZINE HCL 5 MG TABLET PO SCH (09:47)
--- NOTE | 2020-10-26 10:59 | P.DS ---
Admission Date: 10/23/20 Discharge Date: 10/26/20 Disposition: ROUTINE DISCHARGE Discharge Condition: FAIR Reason for Admission: diarrhea, syncope - Problems (1) Enterocolitis Current Visit: Yes Status: Acute (2) Septic shock Current Visit: Yes Status: Acute (3) Hypovolemia Current Visit: Yes Status: Acute (4) ARF (acute renal failure) Current Visit: Yes Status: Acute Brief History of Present Illness: 50-year-old woman with a history of hypertension presented to the emergency department with a complaint of recurrent bouts of abdominal pain of 4 days duration. Was in the emergency department L[facility] where CT scan of the abdomen was unremarkable except diverticular. The patient was discharged to the emergency department only to return later with bouts of diarrhea and vomiting and chills. She also felt like passing out. Her systolic blood pressure in the emergency department was down to 60. The hypotension responding to IV hydration in the ED. Patient also had severe leukocytosis with concern for sepsis. Patient was hospitalized for further management. Hospital Course: Patient admitted to the medical floor and aggressively hydrated with IV fluids. She was also placed on IV Levaquin and Flagyl possible infectious colitis. Her stool for C. diff was negative. Stool culture yielded no growth. She was also treated with IV steroids as inflammatory bowel was not ruled out. Patient's symptoms gradually improved with treatment. She tolerated liquid diet and diet advancement to soft. She had an episode of blood-stained BM. Her diarrhea resolved and did not have any bowel movement the rest of the hospital stay. Leukocytosis is almost resolved, she has been afebrile. Patient is deemed clinically stable for discharge. She is discharged with oral Levaquin and Flagyl to continue treatment for the infection enterocolitis. She is also discharged with oral prednisone for possible IBD. Patient will follow with GI as an outpatient for further evaluation. I informed Dr. Muir about the patient and he plans to arrange for an appointment next week with her next week. Vital Signs/Physical Exam: Temp Pulse Resp BP Pulse Ox 97.5 F 65 16 130/79 100 10/26/20 08:00 10/26/20 09:46 10/26/20 08:00 10/26/20 09:46 10/26/20 08:00 General: Alert, In no apparent distress, Oriented x3 HEENT: Mucous membr. moist/pink Neck: Supple Respiratory: Clear to auscultation bilaterally, Normal air movement Cardiovascular: No edema, Regular rate/rhythm, Normal S1 S2 Gastrointestinal: Normal bowel sounds, Soft and benign, Non-distended, No tenderness Musculoskeletal: No swelling, No tenderness Integumentary: No rashes Neurological: Normal strength at 5/5 x4 extr Laboratory Data at Discharge: WBC 11.3 K/uL (4.3-10.9) H D 10/26/20 05:30 Hgb 13.1 g/dL (12.0-15.0) 10/26/20 05:30 Hct 38.5 % (36.0-45.0) 10/26/20 05:30 Plt Count 330 K/uL (152-406) 10/26/20 05:30 Sodium 139 mmol/L (136-145) 10/26/20 05:30 Potassium 3.8 mmol/L (3.5-5.1) 10/26/20 05:30 BUN 14 mg/dL (7-18) 10/26/20 05:30 Creatinine 0.73 mg/dL (0.55-1.3) 10/26/20 05:30 Glucose 117 mg/dL (74-106) H 10/26/20 05:30 Phosphorus 2.9 mg/dL (2.5-4.9) 10/26/20 05:30 Magnesium 2.0 mg/dL (1.8-2.4) 10/26/20 05:30 Total Bilirubin 0.2 mg/dL (0.2-1.0) 10/24/20 05:49 AST 12 U/L (15-37) L 10/24/20 05:49 ALT 17 U/L (12-78) 10/24/20 05:49 Alkaline Phosphatase 55 U/L (45-117) 10/24/20 05:49 Triglycerides 200 mg/dL (<150) H 10/24/20 05:49 Cholesterol 185 mg/dL (<200) 10/24/20 05:49 HDL Cholesterol 35 mg/dL (40-60) L 10/24/20 05:49 Cholesterol/HDL Ratio 5.29 10/24/20 05:49 Lipase 103 U/L (73-393) 10/23/20 Unknown Home Medications: Amlodipine [Norvasc*] 10 mg PO DAILY 10/23/20 Carvedilol [Coreg] 25 mg PO DAILY 10/23/20 Cetirizine HCl [Zyrtec] 10 mg PO DAILY 10/23/20 Hydralazine [Apresoline*] 25 mg PO DAILY 10/23/20 Lisinopril [Zestril] 40 mg PO DAILY 10/23/20 Metoclopramide HCl [Reglan] 10 mg PO QID 10/23/20 Omeprazole 20 mg PO DAILY 10/23/20 hydroCHLOROthiazide [Hydrodiuril*] 25 mg PO DAILY 10/23/20 levoFLOXacin [Levaquin] 500 mg PO DAILY #5 tab 10/26/20 metroNIDAZOLE [Flagyl] 500 mg PO Q8H #15 tablet 10/26/20 predniSONE [Deltasone] 20 mg PO DAILY #5 tab 10/26/20 New Medications: metroNIDAZOLE [Flagyl] 500 mg PO Q8H #15 tablet levoFLOXacin [Levaquin] 500 mg PO DAILY #5 tab predniSONE [Deltasone] 20 mg PO DAILY #5 tab Diet: GI Soft Activity: Ad xiao Followup: Unknown,U [Primary Care Provider] - 1-2 Weeks Sebastian Muir MD [ACTIVE - CAN ADMIT] - 1-2 Weeks Time spent managing pt's care (in minutes): 37
--- NOTE | 2020-10-26 11:22 | PN ---
Date of Progress Note: 10/25/2020 Subjective: The patient was admitted with acute kidney injury secondary to prerenal superimposed with YVONNE inhibitor and contrast. The patient's kidney function normalized. Objective: Vital Signs: When I saw the patient, blood pressure 130/79, pulse of 65, afebrile. The patient had good urine output. Chest: Clear to auscultation. HEART: S1, S2. Regular. Abdomen: Soft, nontender. EXTREMITIES: No edema. NEURO: Alert. No focal. Laboratory Data: H and H 13.1/38.5. Sodium 139, potassium 3.8, bicarb 29, BUN 14, creatinine 0.7, GFR of 84, calcium 9.3, phosphorus 2.9, magnesium of 2. Plasma renin and aldosterone are still pending. TSH 1.03. Assessment And Plan: 1. Acute kidney injury is multifactorial secondary to contrast, prerenal, recovered, resolved. 2. Hypokalemia with present hypertension. Renin willi was sent. We will follow it up as outpatient. Currently controlled. 3. Hypertension, controlled optimal. Continue current regimen. Keep avoiding YVONNE inhibitor. 4. Gastroenteritis, recovered, resolved. The patient is cleared from the renal standpoint for discharge planning to follow up in the office in 2-3 weeks. 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 LINCOLN Voice ID: [id number] Report ID: [id number] MANISHA
[2020-10-26 15:22] VITALS: BP 116/62; TEMP 96.7
== END 2020-10-26 16:31 | disposition home or self-care (01) | DRG 871 ==
LOC: ER 05:54 → ERHOLD 06:21 → MERGE 06:21 → ERHOLD 08:52 → 2ND 20:21
PROVIDERS: ADMIT Internal Medicine; ATTEND Internal Medicine
DX: A41.9 Sepsis, unspecified organism (principal); R65.21 Severe sepsis with septic shock; N17.9 Acute kidney failure, unspecified; A09 Infectious gastroenteritis and colitis, unspecified; E87.6 Hypokalemia; I10 Essential (primary) hypertension; E86.1 Hypovolemia; E86.0 Dehydration; E83.39 Other disorders of phosphorus metabolism; E83.42 Hypomagnesemia; G62.2 Polyneuropathy due to other toxic agents; T50.8X5A Adverse effect of diagnostic agents, initial encounter; Z88.8 Allergy status to other drugs, medicaments and biological substances; Z79.52 Long term (current) use of systemic steroids; Z85.038 Personal history of other malignant neoplasm of large intestine; Z79.899 Other long term (current) drug therapy; Z20.822 Contact with and (suspected) exposure to COVID-19
CPT/HCPCS: 0240U; 36415; 51702; 71045; 74177; 80048; 80053; 80061; 80069; 80076; 80307; 81003; 82088; 82565; 82570; 83605; 83690; 83735; 84156; 84244; 84443; 85025; 86850; 86900; 86901; 87040; 87045; 87046; 87324; 87449; 93005; 99285; C9113; J1650; J2270; J2405; J2920; J3480; Q9967